=== PATIENT | female | born 1990 | race American Indian/Alaskan Native ===

== ENCOUNTER 2016-12-02 19:23 | Emergency (ER) | payer SELFPAY ==
[2016-12-02 20:30] VITALS: BP 108/50
== END 2016-12-02 21:30 | disposition left against medical advice (07) ==
LOC: ED 19:23
DX: Z04.3 Encounter for examination and observation following other accident (principal); Z53.21 Procedure and treatment not carried out due to patient leaving prior to being seen by health care provider